=== PATIENT | female | born 1985 | race American Indian/Alaskan Native ===

== ENCOUNTER 2019-11-04 20:00 | Emergency (ER) | payer OTHER ==
--- NOTE | 2019-11-04 21:00 | EDPHYS ---
Physician Documentation [facility] Name: Kajal Montana Age: 33 yrs Sex: Female : 1985 Arrival Date: 11/04/2019 Time: 20:03 Bed 19 Private MD: ED Physician Brett Martínez HPI: 11/03 20:57 This 33 yrs old Female presents to ER via Ambulatory with complaints of Fever. susy 20:57 The patient reports fever, that was measured at 100.5 degrees Fahrenheit. Onset: The susy symptoms/episode began/occurred 3 day(s) ago. Modifying factors: there are no obvious modifying factors. Associated signs and symptoms: Pertinent positives: cough. Severity of symptoms: At their worst the symptoms were mild in the emergency department the symptoms are unchanged. The patient has not experienced similar symptoms in the past. 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 - Social history:: Smoking status: Patient/guardian denies using. ROS: 20:58 Eyes: Negative for injury, pain, redness, and discharge, ENT: Negative for injury, susy pain, and discharge, Neck: Negative for injury, pain, and swelling, Cardiovascular: Negative for chest pain, palpitations, and edema, Abdomen/GI: Negative for abdominal pain, nausea, vomiting, diarrhea, and constipation, Back: Negative for injury and pain, : Negative for injury, bleeding, discharge, and swelling, MS/Extremity: Negative for injury and deformity, Skin: Negative for injury, rash, and discoloration, Neuro: Negative for headache, weakness, numbness, tingling, and seizure, Psych: Negative for depression, anxiety, suicide ideation, homicidal ideation, and hallucinations, Allergy/Immunology: Negative for hives, rash, and allergies, Endocrine: Negative for neck swelling, polydipsia, polyuria, polyphagia, and marked weight changes, Hematologic/Lymphatic: Negative for swollen nodes, abnormal bleeding, and unusual bruising. 20:58 Constitutional: Positive for body aches, chills, fatigue, fever. 20:58 Respiratory: Positive for cough. Exam: 20:58 Head/Face: Normocephalic, atraumatic. Eyes: Pupils equal round and reactive to light, susy extra-ocular motions intact. Lids and lashes normal. Conjunctiva and sclera are non-icteric and not injected. Cornea within normal limits. Periorbital areas with no swelling, redness, or edema. ENT: Nares patent. No nasal discharge, no septal abnormalities noted. Tympanic membranes are normal and external auditory canals are clear. Oropharynx with no redness, swelling, or masses, exudates, or evidence of obstruction, uvula midline. Mucous membranes moist. Neck: Trachea midline, no thyromegaly or masses palpated, and no cervical lymphadenopathy. Supple, full range of motion without nuchal rigidity, or vertebral point tenderness. No Meningismus. Chest/axilla: Normal chest wall appearance and motion. Nontender with no deformity. No lesions are appreciated. Cardiovascular: Regular rate and rhythm with a normal S1 and S2. No gallops, murmurs, or rubs. Normal PMI, no JVD. No pulse deficits. Respiratory: Lungs have equal breath sounds bilaterally, clear to auscultation and percussion. No rales, rhonchi or wheezes noted. No increased work of breathing, no retractions or nasal flaring. Abdomen/GI: Soft, non-tender, with normal bowel sounds. No distension or tympany. No guarding or rebound. No evidence of tenderness throughout. Back: No spinal tenderness. No costovertebral tenderness. Full range of motion. Skin: Warm, dry with normal turgor. Normal color with no rashes, no lesions, and no evidence of cellulitis. MS/ Extremity: Pulses equal, no cyanosis. Neurovascular intact. Full, normal range of motion. Neuro: Awake and alert, GCS 15, oriented to person, place, time, and situation. Cranial nerves II-XII grossly intact. Motor strength 5/5 in all extremities. Sensory grossly intact. Cerebellar exam normal. Normal gait. Psych: Awake, alert, with orientation to person, place and time. Behavior, mood, and affect are within normal limits. 20:58 Constitutional: The patient appears febrile. Vital Signs: 20:10 BP 133 / 86; Pulse 100; Resp 18; Temp 100.5; Pulse Ox 98% ; Weight 78.47 kg; Height 4 ll1 ft. 11 in. (150 cm); Pain 8/10; 21:15 BP 110 / 72; Pulse 96; Resp 18; Pulse Ox 98% on R/A; 20:10 Body Mass Index 34.88 (78.47 kg, 150 cm) ll1 MDM: 20:27 Patient medically screened. [facility] 20:59 Data reviewed: vital signs, nurses notes. [facility] Administered Medications: 21:15 Drug: Motrin 600 mg Route: PO; 21:34 Follow up: Response: No adverse reaction 21:15 Drug: Zithromax 500 mg Route: PO; 21:34 Follow up: Response: No adverse reaction Disposition: 11/04/19 20:59 Discharged to Home. Impression: Fever, unspecified, Acute upper respiratory infection, unspecified. - Condition is Stable. - Discharge Instructions: Fever, Adult, Upper Respiratory Infection, Adult, Cough, Adult. - Prescriptions for Diana- D 12 Hour 60-120 mg Oral Tablet Sustained Release 12 hr - take 1 tablet by ORAL route every 12 hours As needed; 20 tablet. Zithromax Z- Sb 250 mg Oral Tablet - take 1 tablet by ORAL route as directed for 5 days Day 1 - take two (2) tablets one time. Day 2, 3, 4 , 5 take one (1) tablet once daily.; 6 tablet. - Medication Reconciliation Form, Thank You Letter, Antibiotic Education, Prescription Opioid Use form. - Follow up: Private Physician; When: 2 - 3 days; Reason: Recheck today's complaints, Continuance of care, Re-evaluation by your physician. - Problem is new. - Symptoms have improved. Signatures: Brett Martínez MD MD cha Habalo, Winsy Edi Garcia RN RN ll1 Corrections: (The following items were deleted from the chart) 21:35 20:59 11/04/2019 20:59 Discharged to Home. Impression: Fever, unspecified; Acute upper wh respiratory infection, unspecified. Condition is Stable. Forms are Medication Reconciliation Form, Thank You Letter, Antibiotic Education, Prescription Opioid Use. Follow up: Private Physician; When: 2 - 3 days; Reason: Recheck today's complaints, Continuance of care, Re-evaluation by your physician. Problem is new. Symptoms have improved. [facility]
--- NOTE | 2019-11-04 21:00 | ER ---
Nurse's Notes [facility] Name: Kajal Montana Age: 33 yrs Sex: Female : 1985 Arrival Date: 11/04/2019 Time: 20:03 Bed 19 Private MD: Diagnosis: Fever, unspecified;Acute upper respiratory infection, unspecified Presentation: 11/03 20:10 Chief complaint: Patient states: + HUIZAR, body aches, cough, and fever for 3 days. ll1 Coronavirus screen: The patient has NOT traveled to a country currently being monitored by the CDC within the last 14 days. Ebola Screen: Patient denies travel to an Ebola-affected area in the 21 days before illness onset. Initial Sepsis Screen: Does the patient meet any 2 criteria? HR > 90 bpm. Risk Assessment: Do you want to hurt yourself or someone else? Patient reports no desire to harm self or others. 20:10 Method Of Arrival: Ambulatory ll1 20:10 Acuity: RICHA 3 ll1 20:30 Initial Sepsis Screen: Does the patient have a suspected source of infection? Yes: wh Productive cough/pneumonia. Onset of symptoms is unknown. 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 - Social history:: Smoking status: Patient/guardian denies using. Screenin:30 Abuse screen: Denies threats or abuse. Denies injuries from another. Nutritional wh screening: No deficits noted. Tuberculosis screening: No symptoms or risk factors identified. Fall Risk None identified. Assessment: 20:20 General: Appears in no apparent distress. Behavior is calm, cooperative, appropriate wh for age. Pain: Denies pain. Neuro: Level of Consciousness is awake, alert, obeys commands, Oriented to person, place, time, situation, Appropriate for age. Cardiovascular: Heart tones S1 S2. Respiratory: Reports cough that is Airway is patent Respiratory effort is even, unlabored, Respiratory pattern is regular, symmetrical, Breath sounds are clear bilaterally. GI: Abdomen is flat, non-distended. : No signs and/or symptoms were reported regarding the genitourinary system. EENT: No signs and/or symptoms were reported regarding the EENT system. Derm: Skin is intact, is healthy with good turgor, Skin is pink, warm \T\ dry. normal. Musculoskeletal: Circulation, motion, and sensation intact. Vital Signs: 20:10 BP 133 / 86; Pulse 100; Resp 18; Temp 100.5; Pulse Ox 98% ; Weight 78.47 kg; Height 4 ll1 ft. 11 in. (150 cm); Pain 8/10; 21:15 BP 110 / 72; Pulse 96; Resp 18; Pulse Ox 98% on R/A; wh 20:10 Body Mass Index 34.88 (78.47 kg, 150 cm) ll1 ED Course: 20:03 Patient arrived in ED. cl3 20:12 Triage completed. ll1 20:13 Arm band placed on Patient placed in an exam room. 1 20:20 Jesus Soto is Primary Nurse. 20:27 Brett Martínez MD is Attending Physician. [facility] 20:30 Patient has correct armband on for positive identification. Bed in low position. Call light in reach. Side rails up X 1. Pulse ox on. NIBP on. 21:32 No provider procedures requiring assistance completed. Patient did not have IV access during this emergency room visit. Administered Medications: 21:15 Drug: Motrin 600 mg Route: PO; 21:34 Follow up: Response: No adverse reaction 21:15 Drug: Zithromax 500 mg Route: PO; 21:34 Follow up: Response: No adverse reaction Outcome: 20:59 Discharge ordered by . [facility] 21:32 Discharged to home ambulatory. 21:32 Condition: stable 21:32 Discharge instructions given to patient, Instructed on discharge instructions, follow up and referral plans. medication usage, POC Demonstrated understanding of instructions, follow-up care, medications, POC Prescriptions given X 2. 21:35 Patient left the ED. Signatures: Brett Martínez MD MD cha Habalo, Winsy Elayne Garcia cl3 Edi Garcia, RN RN ll1
[2019-11-04] MEDS ORDERED: IBUPROFEN 200 MG TAB PO ONE (21:10)
[2019-11-04] MEDS ORDERED: AZITHROMYCIN 250 MG TAB ONE (21:10)
[2019-11-04] MEDS ORDERED: IBUPROFEN 400 MG TAB ONE (21:11)
[2019-11-04 21:40] VITALS: TEMP 100.5; O2SAT 98
[2019-11-04 21:42] VITALS: BP 110/72
== END 2019-11-04 21:35 | disposition home or self-care (01) ==
LOC: ER 20:00
DX: J06.9 Acute upper respiratory infection, unspecified (principal)
CPT/HCPCS: 99283

== ENCOUNTER 2019-11-26 17:07 | Emergency (ER) | payer OTHER ==
--- OUTSIDE RECORDS SUMMARY | 2019-11-26 17:09 | XMS REPORT ---
:1985 Author Organization [employer] Care Team Providers Name Role Phone Serrano, Na Provider Role Unavailable Allergies, Adverse Reactions, Alerts Substance Reaction Event Type N.K.D.A. Info Not Available Non Drug Allergy Problems Problem Type Condition Code Onset Dates Condition Statu s Problem GERD without esophagitis K21.9 Act sunshine Problem Influenza vaccination administered Z23 Active at current visit Assessment Palpitations R00.2 Active Problem Body mass index (BMI) of 36.0 to Z68.36 Active 36.9 Problem Gastroesophageal reflux disease, K21.9 Active esophagitis presence not specified Problem BMI 36.0-36.9,adult Z68.36 Active Problem Hx of migraines Z86.69 Active Problem Adult general medical exam Z00.00 A ctive Problem Family history of prostate problems Z84.2 Active Problem Anxiety F41.9 Active Medications Medication Code System Code Instructions Start End Date Status Dos age Date Omeprazole [facility] 85233637920 40 MG Orally Once Active 1 capsule a day Results No Known Results Summary Purpose [employer] Submission
--- OUTSIDE RECORDS SUMMARY | 2019-11-26 17:09 | XMS REPORT ---
:1985 Author Organization [employer] Care Team Providers Name Role Phone Serrano, Na Provider Role Unavailable Allergies No Known Allergies Problems Problem Type Condition Code Onset Dates Condition Statu s Problem GERD without esophagitis K21.9 Act sunshine Problem Influenza vaccination administered Z23 Active at current visit Assessment Needs flu shot Z23 Active Problem Body mass index (BMI) of [...] End Date Status Dos age Date Omeprazole [facility] 41668128797 40 MG Orally Once Active 1 capsule a day Results No Known Results Immunizations Vaccine Administration Date Flucelvax - multidose vial Jun 11, 2019 Summary Purpose [employer] Submission
--- OUTSIDE RECORDS SUMMARY | 2019-11-26 17:09 | XMS REPORT ---
:1985 Author Organization [employer] Care Team Providers Name Role Phone Karissa Hoskins Provider Role Unavailable Allergies No Known Allergies Problems Problem Type Condition Code Onset Dates Condition Statu s Problem GERD without esophagitis K21.9 Act sunshine Problem Influenza vaccination administered Z23 Active at current visit Assessment Upper respiratory tract infection, J06.9 Active unspecified type Problem Body mass index (BMI) of 36.0 [...] End Date Status Dos age Date Omeprazole [facility] [id number] 40 MG Orally Once Active 1 capsule a day Results No Known Results Summary Purpose [employer] [facility] Submission
--- OUTSIDE RECORDS SUMMARY | 2019-11-26 17:09 | XMS REPORT ---
:1985 Author Organization [employer] Care Team Providers Name Role Phone Serrano, Na Provider Role Unavailable Allergies No Known Allergies Problems Problem Type Condition Code Onset Dates Condition Statu s Problem GERD without esophagitis K21.9 Act sunshine Problem Influenza vaccination administered Z23 Active at current visit Problem Body mass index (BMI) of 36.0 to Z68.36 Active 36.9 Problem Gastroesophageal reflux disease, K21.9 Active esophagitis presence not specified Problem BMI 36.0-36.9,adult Z68.36 Active Problem Hx of migraines Z86.69 Active Problem Adult general medical exam Z00.00 A ctive Problem Family history of prostate problems Z84.2 Active Problem Anxiety F41.9 Active Medications No Known Medications Results No Known Results Summary Purpose [employer] Submission
--- NOTE | 2019-11-26 17:45 | ER ---
Nurse's Notes [facility] Name: Kajal Montana Age: 33 yrs Sex: Female : 1985 Arrival Date: 11/26/2019 Time: 17:10 Bed 20 Private MD: Mylene Serrano Diagnosis: Person with feared health complaint in whom no diagnosis is made;Otalgia Presentation: 11/25 17:14 Chief complaint: Patient states: Reports right ear hat been itching, bought an otoscope jl7 from [employer] and looked yesterday and saw that her right ear is red, reports intermittent pain to right ear, not currently hurting. Coronavirus screen: Proceed with normal triage. Ebola Screen: No symptoms or risks identified at this time. Initial Sepsis Screen: Does the patient meet any 2 criteria? No. Patient's initial sepsis screen is negative. Does the patient have a suspected source of infection? No. Patient's initial sepsis screen is negative. Risk Assessment: Do you want to hurt yourself or someone else? Patient reports no desire to harm self or others. Onset of symptoms is unknown. 17:14 Method Of Arrival: Ambulatory jl7 17:14 Acuity: RICHA 4 jl7 Triage Assessment: 17:16 General: Appears in no apparent distress. uncomfortable, Behavior is cooperative, jl7 appropriate for age, anxious. Pain: Denies pain. 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 - Social history:: Smoking status: Patient denies any tobacco usage or history of. Screenin:27 Abuse screen: Denies threats or abuse. Nutritional screening: No deficits noted. Tuberculosis screening: No symptoms or risk factors identified. Fall Risk None identified. Assessment: 17:22 General: Appears in no apparent distress. comfortable, Behavior is calm, cooperative, Denies fever, chills. Neuro: Level of Consciousness is awake, alert, Oriented to person, place, time. Cardiovascular: Heart tones S1 S2 present Capillary refill < 3 seconds Patient's skin is warm and dry. Respiratory: Airway is patent Respiratory effort is even, unlabored, Respiratory pattern is regular, symmetrical. GI: Abdomen is flat. : No signs and/or symptoms were reported regarding the genitourinary system. EENT: Reports right ear itching and occasional discomfort. Denies nasal congestion, nasal discharge. Derm: Skin is intact, is healthy with good turgor. Musculoskeletal: No signs and/or symptoms reported regarding the musculoskeletal system. Vital Signs: 17:14 BP 128 / 70; Pulse 94; Resp 17; Temp 98.9; Pulse Ox 98% ; Pain 0/10; jl7 ED Course: 17:10 Patient arrived in ED. mr 17:10 Mylene Serrano MD is Private Physician. mr 17:14 Jersey Quinteros, RN is Primary Nurse. [facility] 17:16 Triage completed. [facility] 17:16 Arm band placed on right wrist. [facility] 17:29 Patient has correct armband on for positive identification. 17:31 [facility] 17:31 Abel Vides MD is Attending Physician. [facility] Administered Medications: No medications were administered Outcome: 17:33 Medical screen evaluation completed per provider. Patient declined treatment. 17:33 Condition: unchanged 17:33 Demonstrated understanding of 17:45 Discharge ordered by . [facility] 17:46 Patient left the ED. Signatures: Josef Ruiz PA PA Yamila Garg mr Jersey Quinteros, RN RN Reba Hayes RN RN
--- NOTE | 2019-11-26 17:45 | EDPHYS ---
Physician Documentation [facility] Name: Kajal Montana Age: 33 yrs Sex: Female : 1985 Arrival Date: 11/26/2019 Time: 17:10 Bed 20 Private MD: Mylene Serrano ED Physician Abel Vidse HPI: 11/25 17:31 This 33 yrs old Other Female presents to ER via Ambulatory with complaints of Foreign jmm Body In Ear. 17:31 The patient presents with a foreign body sensation. Onset: The symptoms/episode jmm began/occurred 3 month(s) ago. Modifying factors: The symptoms are alleviated by nothing, the symptoms are aggravated by nothing. Associated signs and symptoms: Pertinent negatives: fever. This is a 33 year old female with no chronic medical conditions that presents to the ED with complaints of itching and fb sensation to the right ear which has been ongoing for months. Patient states she uses q tips to clean her ear. Patient evaluated her own ear and is concerned there may be something inside the ear. Denies fever. . 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 - Social history:: Smoking status: Patient denies any tobacco usage or history of. ROS: 17:31 Constitutional: Negative for fever, chills, and weight loss. jmm 17:31 Cardiovascular: Negative for chest pain, palpitations, and edema, Respiratory: Negative for shortness of breath, cough, wheezing, and pleuritic chest pain. 17:31 ENT: Positive for ear pain, foreign body sensation. 17:31 All other systems are negative. Exam: 17:31 Constitutional: This is a well developed, well nourished patient who is awake, alert, jmm and in no acute distress. Head/Face: atraumatic. Eyes: EOMI, no conjunctival erythema appreciated 17:31 Neck: Trachea midline, Supple Chest/axilla: Normal chest wall appearance and motion. Cardiovascular: Regular rate and rhythm. No edema appreciated Respiratory: Normal respirations, no respiratory distress appreciated Abdomen/GI: Non distended, soft Back: Normal ROM Skin: General appearance color normal MS/ Extremity: Moves all extremities, no obvious deformities appreciated, no edema noted to the lower extremities Neuro: Awake and alert, normal gait Psych: Behavior is normal, Mood is normal, Patient is cooperative and pleasant 17:31 ENT: Ear canal(s): cerumen impaction, that is mild, occluding the right ear canal, TM's: are normal. Vital Signs: 17:14 BP 128 / 70; Pulse 94; Resp 17; Temp 98.9; Pulse Ox 98% ; Pain 0/10; jl7 MDM: 17:31 Patient medically screened. [facility] 17:37 Data reviewed: vital signs, nurses notes. Counseling: I had a detailed discussion with [facility] the patient and/or guardian regarding: the historical points, exam findings, and any diagnostic results supporting the discharge/admit diagnosis, the need for outpatient follow up, to return to the emergency department if symptoms worsen or persist or if there are any questions or concerns that arise at home. Medical screen evaluation completed. EMTALA emergency medical condition absent. Administered Medications: No medications were administered Disposition: 17:37 Otalgia. [facility] 11/26 10:46 Co-signature as Attending Physician, Abel Vides MD I agree with the assessment and kdr plan of care. Disposition: 11/26/19 17:45 Discharged to Home as Medical Screen. Impression: Person with feared health complaint in whom no diagnosis is made, Otalgia. - Condition is Stable. - Medication Reconciliation Form, Thank You Letter, Antibiotic Education, Prescription Opioid Use form. - Follow up: Private Physician; When: 2 - 3 days; Reason: Recheck today's complaints, Continuance of care, Re-evaluation by your physician. Signatures: Abel Vides MD MD kdr Mickail, Joel, PA PA [facility] Jersey Quinteros RN RN jl7 Reba Romero RN RN Corrections: (The following items were deleted from the chart) 11/25 17:46 17:45 11/26/2019 17:45 Discharged to Home as Medical Screen. Impression: Person with ah feared health complaint in whom no diagnosis is made; Otalgia. Condition is Stable. Forms are Medication Reconciliation Form, Thank You Letter, Antibiotic Education, Prescription Opioid Use. Follow up: Private Physician; When: 2 - 3 days; Reason: Recheck today's complaints, Continuance of care, Re-evaluation by your physician. ni
[2019-11-26 17:55] VITALS: BP 128/70; TEMP 98.9; O2SAT 98
== END 2019-11-26 17:46 | disposition home or self-care (01) ==
LOC: ER 17:07
DX: Z71.1 Person with feared health complaint in whom no diagnosis is made (principal)
CPT/HCPCS: 99281

== ENCOUNTER → 2022-09-02 | Day surgery (SDC) | payer OTHER ==
--- NOTE | 2022-09-02 12:02 | RAD REPORT ---
EXAM DESCRIPTION: US - Breast Core BX w/US Guidance - 09/02/2022 11:00 am CLINICAL HISTORY: ICD R 92.8 COMPARISON: 07/19/2022 ultrasound TECHNIQUE: The risks, benefits alternatives to the procedure were explained to the patient and infor med consent obtained. Skin and subcutaneous tissues anesthetized with lidocaine. Under sonographic guidance, 3 x 14 gauge vacuum assisted core biopsies of the mass within the right b reast obtained. 2 centimeter specimens taken. Tissue given to pathology. Subsequently a localizing clip was placed into the mass. Patient experienced no immediate complication IMPRESSION: Vacuum assisted core biopsies of the right breast mass
== END ==
LOC: DS 10:13
PROVIDERS: ATTEND Nurse Practitioner Family
DX: N60.11 Diffuse cystic mastopathy of right breast (principal)
CPT/HCPCS: 19083; 88305